=== PATIENT | male | born 1980 | race Caucasian/White ===

== ENCOUNTER 2018-08-03 11:05 | Emergency (ER) | payer BC ==
[~2018-08-03] VITALS: Ht 175.3 cm; Wt 80.7 kg
[2018-08-03] MEDS ORDERED: ADERAL (11:31)
[2018-08-03] MEDS ORDERED: PERCOCET 10-321 EACH PO (11:32)
== END 2018-08-03 16:27 | disposition home or self-care (01) ==
LOC: ER 11:05
DX: K29.70 Gastritis, unspecified, without bleeding (principal)